=== PATIENT | female | born 1990 | race Caucasian/White ===

== ENCOUNTER 2016-10-05 19:51 | Emergency (ER) | payer OTHER ==
[2016-10-05 20:14] VITALS: BP 136/87; PULSE 87; RESP 18; TEMP 98.7
[2016-10-05] MEDS ORDERED: IBUPROFEN 600 MG TAB PO STA (20:21)
--- NOTE | 2016-10-05 20:28 | ED ---
Lower Extremity Injury HPI - General Chief Complaint: Extremity Injury, Lower Stated Complaint: Left Ankle Injury Time Seen by Provider: 10/05/16 19:58 Source: patient, RN notes reviewed Mode of arrival: ambulatory Limitations: no limitations - History of Present Illness Initial Comments: Patient is a 26-year-old female presents to the emergency room for evaluation of left foot pain. Patient states she accidentally stepped on a drum stick on the floor and rolled her ankle. Patient states she initially felt pain on the lateral portion of her foot. Patient states over the course of the day the pain has been getting worse. Patient denies taking any Tylenol or Motrin for pain. Patient does state she has been applying ice over the area with no relief of symptoms. Patient denies any numbness or tingling in her toes. Patient states the pain is mostly over her fourth and fifth metatarsal areas. Patient denies any other injuries during incident. - Related Data Home Medications Medication Instructions Recorded Confirmed Levothyroxine Sodium [Synthroid] 25 mcg PO DAILY 07/27/16 10/05/16 Allergies Allergy/AdvReac Type Severity Reaction Status Date / Time Penicillins Allergy Unknown Verified 10/05/16 20:11 Childhood Review of Systems ROS Statement: Those systems with pertinent positive or pertinent negative responses have been documented in the HPI. ROS Other: All systems not noted in ROS Statement are negative. Past Medical History Past Medical History: Seizure Disorder, Thyroid Disorder Additional Past Medical History / Comment(s): Pt states acute epilepsy c\no current treatment. Obstetric history: First was a due to failure of induction of labor 9 lbs. 5 oz. in 2005. Second was a repeat . This is her third . Her blood type is A-, antibodies negative, rubella immune, RPR nonreactive, hepatitis B-, HIV nonreactive, normal 1 hour GTT. She does have a right dermoid cyst measuring 8 cm. She is a transfer of care to [place] with this at 31 weeks. History of Any Multi-Drug Resistant Organisms: None Reported Past Surgical History: Section, Ear Surgery Additional Past Surgical History / Comment(s): 2005 and 2007 Past Anesthesia/Blood Transfusion Reactions: No Reported Reaction Past Psychological History: Depression Smoking Status: Never smoker Past Alcohol Use History: None Reported Past Drug Use History: None Reported - Past Family History Mother Family Medical History: Hypertension General Exam - General Exam Comments Initial Comments: Sitting on exam bed, no acute distress. Limitations: no limitations General appearance: alert, in no apparent distress Head exam: Present: atraumatic, normocephalic, normal inspection ENT exam: Present: normal exam Neck exam: Present: normal inspection Respiratory exam: Absent: respiratory distress Left Foot/Toe exam: Present: tenderness (proximal, mid and distal tenderness over 4th and 5th metacarpal bones), swelling (lateral dorsal foot ) Neurovascular tendon exam: Absent: pulse deficit (2+ dorsal pedal and posterior tibial pulses), abnormal cap refill (Capillary refill less than 2 seconds) Neurological exam: Present: alert, oriented X3, CN II-XII intact Psychiatric exam: Present: normal affect, normal mood Skin exam: Present: warm, dry, intact, normal color. Absent: rash Course Vital Signs 10/05/16 20:09 Temperature 98.7 F Pulse Rate 87 Respiratory 18 Rate Blood Pressure 136/87 O2 Sat by Pulse 100 Oximetry Medical Decision Making - Medical Decision Making Patient is a 26-year-old female presents to the emergency room for evaluation of left foot pain. Left foot x-ray shows no acute findings. Patient placed in Ken wrap and given crutches and advised to follow-up with an surgical instrument repair specialist if symptoms are not improving in 7-10 days. Patient states she understands everything that was discussed with her. Return parameters discussed. Case discussed with Dr. Smith. - Radiology Data Radiology results: report reviewed, image reviewed Disposition Clinical Impression: Sprain of left foot Disposition: HOME SELF-CARE Condition: Good Instructions: Foot Sprain (ED) Additional Instructions: Rest, elevate and ice on and off for 10-15 minutes for the next 24-48 hours. Nonweightbearing for 1-2 days. Take Tylenol or Motrin as if her pain. Please follow-up with surgical instrument repair specialist in 7-10 days if symptoms are not improving. If new symptoms develop or symptoms worsen, please return to the ER. Referrals: Emily Avendaño MD [Primary Care Provider] - 1-2 days Kael Valencia DO [Doctor of Osteopathic Medicine] - 1-2 days Time of Disposition: 21:12
--- NOTE | 2016-10-05 21:11 | XR ---
EXAMINATION TYPE: XR foot complete LT DATE OF EXAM: 10/05/2016 8:29 PM COMPARISON: NONE HISTORY: Left foot pain TECHNIQUE: 3 views FINDINGS: I see no fracture nor dislocation. Metatarsals are intact. Joint spaces are normal. IMPRESSION: Negative left foot exam.
== END 2016-10-05 21:30 | disposition home or self-care (01) ==
LOC: EC 19:51
DX: S93.602A Unspecified sprain of left foot, initial encounter (principal); W22.8XXA Striking against or struck by other objects, initial encounter; Z88.0 Allergy status to penicillin; Z79.899 Other long term (current) drug therapy; E07.9 Disorder of thyroid, unspecified
CPT/HCPCS: 99283

== ENCOUNTER → 2016-10-12 | Outpatient (CLI) | payer OTHER ==
--- NOTE | 2016-10-12 11:22 | US ---
EXAMINATION TYPE: US abdomen complete DATE OF EXAM: 10/12/2016 10:52 AM COMPARISON: NONE CLINICAL HISTORY: R10.9 Abd Pain, R19.8 Positive Aguirre Sign. EXAM MEASUREMENTS: Liver Length: 13.3 cm Gallbladder Wall: 0.1 cm CBD: 0.2 cm Spleen: 10.3 cm Right Kidney: 10.9 x 3.9 x 4.8 cm Left Kidney: 11.9 x 4.4 x 5.0cm TECHNOLOGIST IMPRESSION: Pancreas: tail obscured by bowel gas Liver: wnl Gallbladder: wnl Evidence for sonographic Aguirre's sign: at today's study, patient has tenderness CBD: wnl Spleen: wnl Right Kidney: kidneys appear as medullary sponge ? Left Kidney: kidneys appear as medullary sponge ? l Upper IVC: wnl Abd Aorta: wnl The liver is homogenous. The intrahepatic portion of the IVC and visualized abdominal aorta are with in normal limits. There is no evidence of cholelithiasis. Common bile duct is unremarkable. The vi sualized portions of the pancreas are homogenous. The spleen is unremarkable. Kidneys are symmetric and free of hydronephrosis. No renal lesions are seen on images saved. Hyperechoic renal pyramids i s seen bilaterally. IMPRESSION: No significant finding is seen to account for patient's symptoms. Bilateral hyperechoic r enal pyramids raises concern for medullary nephrocalcinosis.
== END | disposition home or self-care (01) ==
LOC: RADUSWWP 10:22
PROVIDERS: ATTEND Family Medicine
DX: R93.421 Abnormal radiologic findings on diagnostic imaging of right kidney (principal); R93.422 Abnormal radiologic findings on diagnostic imaging of left kidney; R10.9 Unspecified abdominal pain; R19.8 Other specified symptoms and signs involving the digestive system and abdomen
CPT/HCPCS: 76700

== ENCOUNTER → 2017-03-08 | Outpatient (CLI) | payer OTHER ==
--- NOTE | 2017-03-08 12:42 | XR ---
Abdomen HISTORY: Pain, renal calculus, N20.0 Frontal view of the abdomen on 2 images. Correlation to ultrasound dated 10/12/2016 Overlying bowel gas may obscure detail. Difficult to exclude nephrocalcinosis. Calcifications in the pelvis may be vascular. No bowel obstruction or pneumoperitoneum. Bone mineralization is within darya l limits. Lung bases not included on the exam. Retained fecal debris present throughout the distribut ion of the colon. IMPRESSION: Nonspecific findings as described.
== END | disposition home or self-care (01) ==
LOC: RADXRMAIN 09:58
PROVIDERS: ATTEND Urology
DX: R93.5 Abnormal findings on diagnostic imaging of other abdominal regions, including retroperitoneum (principal)
CPT/HCPCS: 74000

== ENCOUNTER → 2017-05-24 | Outpatient (CLI) | payer OTHER ==
--- NOTE | 2017-05-24 17:37 | US ---
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 EXAM MEASUREMENTS: Right Kidney: 11.4 x 5.1 x 4.8 cm Left Kidney: 10.4 x 6.0 x 5.4 cm Right Kidney: No hydronephrosis or masses seen. Probable medullary sponge kidney Left Kidney: No hydronephrosis or masses seen. Probable medullary sponge kidney Bladder: wnl Bilateral Jets seen: Yes There is no evidence for hydronephrosis at this point in time. No nephrolithiasis is seen. No akil s are identified. The urinary bladder is anechoic. Bilateral ureteral jets are seen. IMPRESSION: No hydronephrosis. No evidence of renal obstruction. Hyperechoic renal papilla consistent with medullary sponge kidney. No change compared to old ultrasou nd exam.
== END | disposition home or self-care (01) ==
LOC: RADUSMAIN 15:52
PROVIDERS: ATTEND Family Medicine
DX: N28.89 Other specified disorders of kidney and ureter (principal)
CPT/HCPCS: 76770